=== PATIENT | male | born 1965 | race Caucasian/White ===

== ENCOUNTER 2021-04-17 04:56 | Emergency (ER) | payer BC, SELFPAY ==
[2021-04-17 05:03] VITALS: BP 103/83; PULSE 75; RESP 18; TEMP 36.1; O2SAT 98; BMI 24.3
--- NOTE | 2021-04-17 05:06 | CT_ITS ---
STUDY: CT ABDOMEN AND PELVIS WITHOUT CONTRAST REASON FOR EXAM: Male, 55 years old. Kidney Stone -- Right flank pain RADIATION DOSAGE (If Supplied By Facility): CTDIvol = ( 9.44 ) mGy, DLP = ( 497.50 ) mGycm TECHNIQUE: Transaxial images were obtained from the dome of the diaphragm to the symphysis pubis without oral contrast, and without intravenous contrast. Sagittal and coronal images were reconstructed. Individualized dose optimization techniques were used for this CT. COMPARISON: None. FINDINGS: The visualized lung bases are unremarkable. The visualized portions of the heart are within normal limits. Normal liver. Normal gallbladder and extrahepatic biliary system. Normal spleen. Normal pancreas. Normal bilateral adrenal glands. There is mild to moderate right hydronephrosis. There is a proximal right ureteral stone measuring 6.3 x 4.8 mm proximally 5 to 6 cm distal to the right renal pelvis. There is a 2 to 3 mm stone left kidney. There are punctate stones left kidney. There is no visualized hydronephrosis. There is a small hiatal hernia. The hernandez of the small bowel are mildly thickened. Image #80. There is moderate stool in the colon. There is diverticulosis without visualized diverticulitis. The appendix is visualized and appears normal. Normal abdominal aorta. Normal inferior vena cava. Normal retroperitoneum. Normal urinary bladder. There are prostatic calcifications. Normal abdominal wall. There are diffuse degenerative changes of the visualized lumbar spine. L3-L4, to a greater degree L4-L5 and L5-S1 there is a broad disc bulge is moderate neural foramina narrowing. L5-S1. There is minimal central stenosis. CT/Abdomen/Pelvis without Cont IMPRESSION: 6.3 x 4.8 mm stone proximal right ureter. Punctate stones left kidney no hydronephrosis Diverticulosis no diverticulitis. Nonspecific mild wall thickening of the small bowel which could potentially represent mild enteritis. Electronically Signed: Ibis Palomino MD at 5:55 EDT Tel , Service support ,
[2021-04-17 05:15] LABS: Absolute Neutrophil Count 7.9 X10^3/uL (2.0-7.7); Basophil% 0.9 % (0-1); Eosinophil# 0.27 X10^3/uL; Eosinophils% 2.5 % (0-5); Hematocrit 50.4 % (40-54); Hemoglobin 16.6 g/dL (13.0-16.5); Lymphocyte % 18.2 % (19-41); Mean Corp Hgb Conc 32.9 g/dL (32-36); Mean Corpuscular Hgb 29.2 pg (27.0-32.0); Mean Corpuscular Volume 88.6 fL (80-94); Mean Platelet Vol. 10.8 fl (6.2-12.0); Monocyte# 0.67 X10^3/uL; Monocyte% 6.1 % (0-10); NRBC Flagged by Analyzer 0 % (0-5); Neutrophil # 7.88 X10^3/uL (2.7-7.7); Neutrophil % 71.8 % (47-70); Platelet Count 247 K/mm3 (150-450); RBC Distribution Width CV 13.6 % (11.6-14.6); RBC Distribution Width SD 43.8 fl (35.1-43.9); Red Blood Count 5.69 M/mm3 (4.6-6.2)
[2021-04-17] MEDS: Ondansetron 4 MG/2 ML Vial IV (05:16)
[2021-04-17] MEDS: Ketorolac 15 MG/ML Vial IV (05:16)
[2021-04-17] MEDS: Morphine 4 MG/ML Syringe IV (05:16)
--- NOTE | 2021-04-17 05:18 | EDS_ITS ---
HPI History of Present Illness Chief Complaint: Flank Pain Informant: patient Onset/Context/Timing Onset: Hours Context: Sudden Onset Timing: Continuous and Waxes and wanes Quality: Pain Location: Right flank Current Severity: Severe Maximum Severity: Severe Worsened by: Nothing Relieved by: None Associated Symptoms Associated Symptoms: Nausea and diaphoresis, patient reported brown urine several days ago but n Narrative Narrative: Patient is a 55-year-old male who is a smoker. He denies history of renal or ureterolithiasis. He denies food intolerance. He denies history of trauma. There is no family history to his knowledge of renal ureterolithiasis. He denies dysuria, frequency or urgency. He does report nausea without vomiting or diarrhea. There are no alleviating, exacerbating precipitating factors. Prior similar symptoms: No Recent Illness/Hospitalization: No PFSH [facility] Medical History Hyperlipemia Home Medications benztropine [Cogentin] 1 mg PO DAILY 04/17/21 [History Last Taken Unknown] cholecalciferol (vitamin D3) [Vitamin D3] 50 mcg PO DAILY 04/17/21 [History Last Taken Unknown] flaxseed oil 1,000 mg PO DAILY 04/17/21 [History Last Taken Unknown] multivitamin 1 tab PO DAILY 04/17/21 [History Last Taken Unknown] ondansetron 4 mg PO Q8H PRN PRN #10 tab 04/17/21 [Rx Last Taken Unknown] oxycodone-acetaminophen 1 tab PO Q6H PRN PRN 5 Days #20 tablet 04/17/21 [Rx Last Taken Unknown] pravastatin 80 mg PO DAILY 04/17/21 [History Last Taken Unknown] Allergy/AdvReac Type Severity Reaction Status Date / Time No Known Allergies Allergy Verified 04/17/21 04:58 Social History (Updated 04/17/21 @ 05:[address] Nas Hunt MD) household members: significant other Smoking Status: Never smoker alcohol intake: current alcohol intake frequency: a few times a month substance use type: does not use ROS ROS ED Constitutional Constitutional ED: Reports sweats; Denies chills, fever(s) or subjective Eyes Eyes: Denies blurry vision or change in vision ENT ENT ED: Denies rhinorrhea or sore throat Cardiovascular Cardiovascular: Denies chest pain or palpitations Respiratory/Chest Respiratory/Chest: Denies cough, dyspnea or dyspnea on exertion Gastrointestinal Gastrointestinal: Reports nausea; Denies abdominal pain, diarrhea, melena or vomiting Genitourinary Genitourinary ED: Reports hematuria; Denies dysuria or urinary frequency Musculoskeletal Musculoskeletal: Reports back pain; Denies arthralgias, myalgias or neck pain Integumentary Denies rash Neurologic Neurologic: Denies headache(s) or weakness Allergic/Immunologic Allergic/Immunologic ED: Denies urticaria EXAM Physical Exam Const Vital Signs: 04/17/21 05:03 Temperature 96.9 F L Temperature Source Temporal Pulse Rate 75 Respiratory Rate 18 Blood Pressure 103/83 H Blood Pressure Mean 89 Pulse Ox 98 Oxygen Delivery Method Room Air Positive well nourished and well developed General Appearance ED: well developed and other During physical exam patient complained of increased pain. He became diaphoretic and slightly pale. HEENT HEENT Narrative: Nares patent. Ears normal. Face is symmetric. Lips are normal. Eyes PERRL and EOMs intact bilaterally General Eye ED: Negative for pale conjunctiva Neck no lymphadenopathy, supple and no JVD Resp normal respiratory effort and clear to auscultation bilaterally Cardio regular rate, regular rhythm, S1 normal heart sound, S2 normal heart sound and no murmurs GI normal to inspection, nondistended, normoactive bowel sounds and non-tender Palpation: soft Back/Spine no CVA tenderness Cervical Spine: Negative for cervical spine tenderness Thoracic Spine / Upper Back: Negative for thoracic spinal tenderness or paraspinal muscle tenderness Extremity normal to inspection General Extremety ED: Negative for edema or tenderness General Extremity: Negative for edema Neuro oriented x3, CN's II-XII intact bilaterally and no sensory deficits noted Sensorium / Orientation: alert Motor Exam: strength 5/5 throughout Psych mental status grossly normal Skin no rashes or lesions noted, no wounds and skin turgor normal MDM MDM MDM Narrative Medical decision making narrative: With abrupt onset of flank pain concern patient has obstructing stone. Doubt pyelonephritis. Since patient is 55 this may represent atypical presentation for aortic aneurysm. Work-up included a UA, CBC, CT of the abdomen pelvis without contrast. Patient was medicated with Zofran, ketorolac and morphine IV push. Patient was reassessed and required more pain medicine. When he was reassessed for the second time at 0645 he is no longer in pain. Will discharge to follow- up with Dr. Felton. Lab Data Attestation: I reviewed the patient's lab results. Lab results narrative: CBC is unremarkable. There is no bandemia. Basic metabolic panels marked for creatinine of 1.41. Glucose is 159. Labs: Laboratory Results - last 24 hr 04/17/21 04/17/21 05:10 05:10 WBC 11.0 RBC 5.69 Hgb 16.6 H Hct 50.4 MCV 88.6 MCH 29.2 MCHC 32.9 RDW Std Deviation 43.8 RDW Coeff of Carol 13.6 Plt Count 247 MPV 10.8 Immature Gran % (Auto) 0.500 Neut % (Auto) 71.8 H Lymph % (Auto) 18.2 L [place] % (Auto) 6.1 Eos % (Auto) 2.5 Baso % (Auto) 0.9 Absolute Neuts (auto) 7.9 H Absolute Lymphs (auto) 2.00 Nucleated RBC % 0 Sodium 139 Potassium 4.0 Chloride 108 H Carbon Dioxide 24.0 Anion Gap 7 BUN 17 Creatinine 1.41 H Estim Creat Clear Calc 70.75 Est GFR (MDRD) Af Amer 67 Est GFR (MDRD) Non-Af 55 L BUN/Creatinine Ratio 12.1 Glucose 159 H Calcium 8.7 Radiography Diagnostic Testing: Radiology Impression Abdomen/Pelvis CT 04/17/21 05:06 IMPRESSION: 6.3 x 4.8 mm stone proximal right ureter. Punctate stones left kidney no hydronephrosis Diverticulosis no diverticulitis. Nonspecific mild wall thickening of the small bowel which could potentially represent mild enteritis. Electronically Signed: Ibis Palomino MD at 5:55 EDT Tel , Service support , CT of the abdomen and pelvis without contrast reveals evidence of hydronephrosis and hydroureter due to obstructing ureteral stone that is lateral to the transverse process of L3. There is a nonobstructing stone noted in the left kidney. Awaiting formal interpretation by radiologist, at 0537 Discharge Plan Triage Chief Complaint: Flank Pain ED Provider: Nas Hunt Dx/Rx/DC Orders Clinical Impression: Hydronephrosis with urinary obstruction due to ureteral calculus, Left renal stone, Acute renal insufficiency Instructions: ED Kidney Stone w/ Colic Prescriptions: New oxycodone-acetaminophen [oxycodone-acetaminophen] 1 TABLET tablet 1 tab PO Q6H PRN PRN (Reason: pain, moderate) 5 Days Qty: 20 RF: 0 ondansetron [ondansetron] 4 MG tablet 4 mg PO Q8H PRN PRN (Reason: Nausea) Qty: 10 RF: 0 No Action multivitamin Tablet 1 tab PO DAILY RF: 0 flaxseed oil 1,000 mg Capsule 1,000 mg PO DAILY RF: 0 pravastatin 80 mg Tablet 80 mg PO DAILY RF: 0 benztropine [Cogentin] 1 mg Tablet 1 mg PO DAILY RF: 0 cholecalciferol (vitamin D3) [Vitamin D3] 50 mcg (2,000 unit) Capsule 50 mcg PO DAILY RF: 0 Primary Care Provider: Vijay Navarro Referrals: Vijay Navarro MD [Primary Care Provider] - Willie Felton MD [STAFF PHYSICIAN] - 3-5 Days Activity Restrictions/Additional Instructions: 1. You should not take ibuprofen or Aleve because you have an elevated creatinine so much 2. If you develop severe pain not controlled by the medicine you were prescribed or unable to eat or drink anything or develop a fever return to the emergency department Disposition Disposition: Home, Self Care
[2021-04-17] MEDS: 0.9% Normal Saline 1,000 ML 250 ML IV (05:19)
[2021-04-17 05:28] LABS: Anion Gap 7 (5-15); BUN 17 mg/dL (7-18); BUN/Creat Ratio 12.1 RATIO (10-20); Calcium,Total 8.7 mg/dL (8.5-10.1); Chloride 108 mmol/L (98-107); Creatinine, Serum 1.41 mg/dL (0.70-1.30); EST Glomerular Filtration Rate 55 mL/min (>60); Est Glom Filt Rate - Afr Amer 67 mL/min (>60); Estimated Creatinine Clearance 70.75 ml/min; Glucose 159 mg/dL (74-106); Sodium Level 139 mmol/L (136-145)
[2021-04-17] MEDS: morphine 8 MG/ML Syringe 6 MG IV (05:53)
== END 2021-04-17 07:16 | disposition home or self-care (01) ==
PROVIDERS: Emergency Provider Emergency Medicine; PCP Family Medicine
DX: N13.2 Hydronephrosis with renal and ureteral calculous obstruction (principal); N28.9 Disorder of kidney and ureter, unspecified; E78.5 Hyperlipidemia, unspecified; Z79.899 Other long term (current) drug therapy; F17.200 Nicotine dependence, unspecified, uncomplicated
CPT/HCPCS: 74176; 80048; 85025; 96361; 96374; 96375; 96376; 99285; J7030; A4216; J2405

== ENCOUNTER → 2021-04-18 08:36 | Outpatient (CLI) | payer BC, SELFPAY ==
[2021-04-17 05:03] VITALS: BMI 24.3
--- NOTE | 2021-04-18 08:50 | EKG12_ITS ---
Test Reason : PRE OP Blood Pressure : / mmHG Vent. Rate : 055 BPM Atrial Rate : 055 BPM P-R Int : 162 ms QRS Dur : 102 ms QT Int : 398 ms P-R-T Axes : 038 037 032 degrees QTc Int : 380 ms Sinus bradycardia Otherwise normal ECG Confirmed by LINDSEY YOUNGBLOOD, ESTEPHANIE ([id number]), editorial cartoonist PUMA SIFUENTES ([id number]) on 04/19/2021 10:21:02 AM Referred By: Willie Felton Confirmed By:ESTEPHANIE PORTILLO MD
[2021-04-18 09:23] LABS: Hematocrit 47.1 % (40-54); Hemoglobin 15.3 g/dL (13.0-16.5); Mean Corp Hgb Conc 32.5 g/dL (32-36); Mean Corpuscular Hgb 29.4 pg (27.0-32.0); Mean Corpuscular Volume 90.4 fL (80-94); Platelet Count 265 K/mm3 (150-450); RBC Distribution Width CV 13.8 % (11.6-14.6); RBC Distribution Width SD 45.7 fl (35.1-43.9); Red Blood Count 5.21 M/mm3 (4.6-6.2); White Blood Count 8.7 K/mm3 (4.4-11.0)
[2021-04-18 09:56] LABS: Anion Gap 5 (5-15); BUN 16 mg/dL (7-18); BUN/Creat Ratio 12.9 RATIO (10-20); Calcium,Total 8.6 mg/dL (8.5-10.1); Chloride 108 mmol/L (98-107); Creatinine, Serum 1.24 mg/dL (0.70-1.30); EST Glomerular Filtration Rate 64 mL/min (>60); Est Glom Filt Rate - Afr Amer 78 mL/min (>60); Glucose 88 mg/dL (74-106); Potassium 4.2 mmol/L (3.5-5.1); Sodium Level 141 mmol/L (136-145)
== END ==
LOC: PSN 08:36
PROVIDERS: PCP Family Medicine; Referring Provider Urology; Visit Provider Urology
DX: Z01.812 Encounter for preprocedural laboratory examination (principal); Z03.818 Encounter for observation for suspected exposure to other biological agents ruled out
CPT/HCPCS: 36415; 80048; 85027; 87635; 93005; C9803; U0005; U0003

== ENCOUNTER 2021-04-18 21:18 | Observation (INO) | payer BC, SELFPAY ==
[2021-04-17 05:03] VITALS: BMI 24.3
[2021-04-18 21:19] VITALS: BP 117/67; PULSE 65; RESP 16; TEMP 36.6; O2SAT 98; BMI 25.7
[2021-04-18] MEDS: HYDROmorphone 1 MG/ML Syringe IV (22:01)
[2021-04-18] MEDS: Ondansetron 4 MG/2 ML Vial IV (22:01)
[2021-04-18] MEDS: 0.9% Normal Saline 1,000 ML 1000 ML IV (22:01)
[2021-04-18 22:05] LABS: Absolute Neutrophil Count 12.7 X10^3/uL (2.0-7.7); Basophil# 0.09 X10^3/uL; Basophil% 0.6 % (0-1); Eosinophil# 0.17 X10^3/uL; Eosinophils% 1.1 % (0-5); Hematocrit 46.2 % (40-54); Hemoglobin 15.6 g/dL (13.0-16.5); Lymphocyte % 10.8 % (19-41); Mean Corp Hgb Conc 33.8 g/dL (32-36); Mean Corpuscular Hgb 29.8 pg (27.0-32.0); Mean Corpuscular Volume 88.3 fL (80-94); Monocyte# 0.97 X10^3/uL; Monocyte% 6.2 % (0-10); NRBC Flagged by Analyzer 0 % (0-5); Neutrophil # 12.73 X10^3/uL (2.7-7.7); Platelet Count 255 K/mm3 (150-450); RBC Distribution Width CV 13.7 % (11.6-14.6); RBC Distribution Width SD 44.5 fl (35.1-43.9); Red Blood Count 5.23 M/mm3 (4.6-6.2); White Blood Count 15.7 K/mm3 (4.4-11.0)
[2021-04-18 22:14] LABS: Anion Gap 8 (5-15); BUN 21 mg/dL (7-18); BUN/Creat Ratio 13.5 RATIO (10-20); Calcium,Total 8.8 mg/dL (8.5-10.1); Chloride 107 mmol/L (98-107); Creatinine, Serum 1.56 mg/dL (0.70-1.30); EST Glomerular Filtration Rate 49 mL/min (>60); Est Glom Filt Rate - Afr Amer 60 mL/min (>60); Estimated Creatinine Clearance 63.95 ml/min; Glucose 109 mg/dL (74-106); Potassium 4.2 mmol/L (3.5-5.1); Sodium Level 139 mmol/L (136-145)
--- NOTE | 2021-04-18 22:23 | RAD_ITS ---
EXAM: XR ABDOMEN, 1 VIEW : 1965 CLINICAL INDICATION: flank pain, known stone TECHNIQUE: Frontal supine view of the abdomen/pelvis. This report was created using [employer] report generation technology. COMPARISON: None. FINDINGS: LOWER THORAX: No acute pathology. GASTROINTESTINAL TRACT: Unremarkable. Non-obstructive. No bowel or stomach distention. ORGANS: Unremarkable as visualized. No organomegaly. No abnormal calcifications. BONES/JOINTS: No acute pathology. SOFT TISSUES: No acute pathology. RAD/Abdomen Single View IMPRESSION: Non-obstructive bowel gas pattern. No urinary stones identified by plain film. at 2250 Reported and signed by: Shaun Saldana MD Electronically Signed: Shaun Saldana MD at 22:50 EDT Tel , Service support ,
[2021-04-18 23:59] LABS: Mucous, Urine 0 SEEN /hpf (<or=2+); Squamous Epithelial Cells - UA 0 SEEN /hpf (0-5)
--- NOTE | 2021-04-18 23:59 | EDS_ITS ---
HPI History of Present Illness Chief Complaint: Flank Pain Informant: patient Narrative Narrative: Patient is a 55-year-old male presenting with worsening right flank pain. He has been worsening since 4 PM today. He was previously diagnosed with a kidney stone is actually scheduled to have lithotripsy with Dr. Felton on Saturday. Chart review shows that patient was seen yesterday in the ER. He was found to have 6 mm x 4.8 mm proximal right ureteral stone. Patient was discharged home with Percocet and Zofran for symptom control. He notes that the Percocet only worked for about 20 minutes today. No other complaints at this time. [facility] Medical History Hyperlipemia Home Medications benztropine [Cogentin] 1 mg PO DAILY 04/17/21 [History Last Taken Unknown] cholecalciferol (vitamin D3) [Vitamin D3] 50 mcg PO DAILY 04/17/21 [History Last Taken Unknown] flaxseed oil 1,000 mg PO DAILY 04/17/21 [History Last Taken Unknown] multivitamin 1 tab PO DAILY 04/17/21 [History Last Taken Unknown] ondansetron 4 mg PO Q8H PRN PRN #10 tab 04/17/21 [Rx Last Taken Unknown] oxycodone-acetaminophen 1 tab PO Q6H PRN PRN 5 Days #20 tablet 04/17/21 [Rx Last Taken Unknown] pravastatin 80 mg PO DAILY 04/17/21 [History Last Taken Unknown] Allergy/AdvReac Type Severity Reaction Status Date / Time No Known Allergies Allergy Verified 04/18/21 21:19 Social History household members: significant other Smoking Status: Never smoker alcohol intake: current alcohol intake frequency: a few times a month substance use type: does not use ROS ROS ED Constitutional Constitutional ED: Denies chills or fever(s) Eyes Eyes: Denies change in vision ENT ENT ED: Denies rhinorrhea or sore throat Cardiovascular Cardiovascular: Denies chest pain Respiratory/Chest Respiratory/Chest: Denies cough or dyspnea Gastrointestinal Gastrointestinal: Reports abdominal pain and nausea; Denies vomiting Genitourinary Genitourinary ED: Reports urinary frequency; Denies hematuria Musculoskeletal Musculoskeletal: Reports back pain; Denies arthralgias or myalgias Integumentary Denies rash Neurologic Neurologic: Denies headache(s) or weakness Psychiatric Psychiatric: Denies anxiety or depression EXAM Physical Exam Const Vital Signs: 04/18/21 21:19 Temperature 97.8 F Temperature Source Temporal Pulse Rate 65 Respiratory Rate 16 Blood Pressure 117/67 Blood Pressure Mean 83 Pulse Ox 98 Oxygen Delivery Method Room Air Positive well nourished and well developed General Appearance ED: well developed HEENT Reports moist mucous membranes Eyes PERRL and EOMs intact bilaterally Neck supple Chest Wall inspection of chest normal Resp normal respiratory effort and clear to auscultation bilaterally Cardio regular rate, regular rhythm and no murmurs GI normal to inspection, nondistended, normoactive bowel sounds Back/Spine General Back: CVA tenderness right Extremity normal to inspection General Extremety ED: Negative for edema or tenderness General Extremity: Negative for edema Neuro oriented x3 Sensorium / Orientation: alert Psych mental status grossly normal Skin no rashes or lesions noted MDM MDM MDM Narrative Medical decision making narrative: Patient evaluated for worsening right flank pain. He has known kidney stone. Creatinine is near his baseline at 1.56. It was 1.402 days ago and 1.24 earlier today. He does have a new leukocytosis of 15.7 but this might be reactive. I suspect all of his pain is from his known stone. Discussed with Dr. Felton who admit the patient for planned lithotripsy in the morning. Patient is given Dilaudid in the ER as well as IV fluids and Zofran with improvement of his symptoms. Lab Data Labs: Laboratory Results - last 24 hr 04/18/21 04/18/21 21:30 21:30 WBC 15.7 H RBC 5.23 Hgb 15.6 Hct 46.2 MCV 88.3 MCH 29.8 MCHC 33.8 RDW Std Deviation 44.5 H RDW Coeff of Carol 13.7 Plt Count 255 MPV 11.0 Immature Gran % (Auto) 0.300 Neut % (Auto) 81.0 H Lymph % (Auto) 10.8 L [place] % (Auto) 6.2 Eos % (Auto) 1.1 Baso % (Auto) 0.6 Absolute Neuts (auto) 12.7 H Absolute Lymphs (auto) 1.70 Nucleated RBC % 0 Sodium 139 Potassium 4.2 Chloride 107 Carbon Dioxide 24.0 Anion Gap 8 BUN 21 H Creatinine 1.56 H Estim Creat Clear Calc 63.95 Est GFR (MDRD) Af Amer 60 Est GFR (MDRD) Non-Af 49 L BUN/Creatinine Ratio 13.5 Glucose 109 H Calcium 8.8 Radiography Diagnostic Testing: Radiology Impression KUB X-Ray 04/18/21 22:23 IMPRESSION: Non-obstructive bowel gas pattern. No urinary stones identified by plain film. at 2250 Reported and signed by: Shaun Saldana MD Electronically Signed: Shaun Saldana MD at 22:50 EDT Tel , Service support , Discharge Plan Triage Chief Complaint: Flank Pain ED Provider: Rachelle Livingston Dx/Rx/DC Orders Clinical Impression: Acute right flank pain, Calculus of proximal right ureter Prescriptions: No Action multivitamin Tablet 1 tab PO DAILY RF: 0 flaxseed oil 1,000 mg Capsule 1,000 mg PO DAILY RF: 0 pravastatin 80 mg Tablet 80 mg PO DAILY RF: 0 benztropine [Cogentin] 1 mg Tablet 1 mg PO DAILY RF: 0 cholecalciferol (vitamin D3) [Vitamin D3] 50 mcg (2,000 unit) Capsule 50 mcg PO DAILY RF: 0 oxycodone-acetaminophen [oxycodone-acetaminophen] 1 TABLET tablet 1 tab PO Q6H PRN PRN (Reason: pain, moderate) 5 Days Qty: 20 RF: 0 ondansetron [ondansetron] 4 MG tablet 4 mg PO Q8H PRN PRN (Reason: Nausea) Qty: 10 RF: 0 Primary Care Provider: Vijay Navarro Referrals: Vijay Navarro MD [Primary Care Provider] - Disposition Disposition: [facility]
[2021-04-19] VITALS (13 sets, daily range): BP systolic 96–126; BP diastolic 59–84; PULSE 43–78; RESP 16–18; TEMP 35.4–37.1; O2SAT 95–100; BMI 25.7
[2021-04-19] LABS: Color, Urine Yellow (Yellow); Glucose, Dipstick Normal (Normal); Ketone-Dipstick Negative (Negative); Leukocyte Esterase-Dipstick 25 /ul (Negative); Nitrite-Dipstick Negative (Negative); Occult Blood-Urine 250 /ul (Negative); Protein-Dipstick 15 mg/dl (Negative); Specific Gravity, Urine 1.015 (1.002-1.030); Urine Bilirubin Dipstick Negative (Negative); Urine Clarity Cloudy (Clear); Urine Urobilinogen Normal (Normal)
[2021-04-19 00:11] LABS: Bacteria 3+ /hpf (None Seen); Red Blood Cells-Urine 5-10 SEEN /hpf (0-5); White Blood Cells 0-5 SEEN /hpf (0-5)
[2021-04-19] MEDS: HYDROmorphone 1 MG/ML Syringe IV (00:15)
[2021-04-19] MEDS: 0.9% Normal Saline 1,000 ML 50 ML IV (01:00)
[2021-04-19] MEDS: Ketorolac 15 MG/ML Vial IV ×3 (03:40→16:08)
--- NOTE | 2021-04-19 07:28 | HP.PCM_ITS ---
HPI - General General Date of Admission: 04/19/21 HPI Narrative CAROL PATEL, is a 55 M who presents with a 6 mm stone in the mid ureter on the right side second time to the emergency room with severe renal colic. He was admitted for pain control were plan to proceed with surgery for shockwave lithotripsy of a stone in the mid right ureter possible stent. [facility] Medical History Hyperlipemia Home Medications benztropine [Cogentin] 1 mg PO DAILY 04/17/21 [History Last Taken Unknown] cholecalciferol (vitamin D3) [Vitamin D3] 50 mcg PO DAILY 04/17/21 [History Last Taken Unknown] flaxseed oil 1,000 mg PO DAILY 04/17/21 [History Last Taken Unknown] multivitamin 1 tab PO DAILY 04/17/21 [History Last Taken Unknown] ondansetron 4 mg PO Q8H PRN PRN #10 tab 04/17/21 [Rx Last Taken Unknown] oxycodone-acetaminophen 1 tab PO Q6H PRN PRN 5 Days #20 tablet 04/17/21 [Rx Last Taken Unknown] pravastatin 80 mg PO DAILY 04/17/21 [History Last Taken Unknown] Allergy/AdvReac Type Severity Reaction Status Date / Time No Known Allergies Allergy Verified 04/18/21 21:19 Social History household members: significant other Smoking Status: Never smoker alcohol intake: current alcohol intake frequency: a few times a month substance use type: does not use ROS Constitutional Constitutional: Denies chills, fever(s) or malaise Eyes Eyes: Denies blurry vision or change in vision ENT HEENT: Reports none Cardiovascular Cardiovascular: Denies chest pain or palpitations Respiratory/Chest Respiratory/Chest: Denies cough or shortness of breath with exertion Gastrointestinal Gastrointestinal: Denies abdominal pain, constipation or diarrhea Genitourinary Genitourinary: Reports systems reviewed and no addt'l complaints, except as documented Musculoskeletal Musculoskeletal: Denies back pain, joint stiffness or joint swelling Integumentary Integumentary: Denies dry skin, jaundice, lesions or rash Neurologic Neurologic: Denies confusion, syncope or weakness Psychiatric Psychiatric: Reports none; Denies anxiety or depression Endocrine Endocrinology: Denies excessive sweating, fatigue or flushing Hematologic/Lymphatic Hematologic/Lymphatic: Denies anemia, easy bleeding or easy bruising Vital Signs Vital Signs Vital Signs: 04/18/21 21:19 04/19/21 00:12 04/19/21 00:13 Temperature 97.8 F 98.1 F Temperature Source Temporal Oral Pulse Rate 65 69 62 Respiratory Rate 16 18 18 Blood Pressure 117/67 117/79 117/79 Blood Pressure Mean 83 91 91 Blood Pressure Source Blood Pressure Position Blood Pressure Location Pulse Ox 98 98 98 Oxygen Delivery Method Room Air Room Air Room Air 04/19/21 00:40 04/19/21 06:40 Temperature 97.7 F L 98.2 F Temperature Source Oral Oral Pulse Rate 78 65 Respiratory Rate 16 16 Blood Pressure 116/70 107/84 H Blood Pressure Mean 85 91 Blood Pressure Source Monitor Monitor Blood Pressure Position Semi-Fowlers Semi-Fowlers Blood Pressure Location Left Arm Left Arm Pulse Ox 98 99 Oxygen Delivery Method Room Air Room Air Weight Weight: 93.2 kg Body Mass Index (BMI) 25.7 Physical Exam Const alert and oriented x3 General Appearance: cooperative HEENT normocephalic, head/scalp atraumatic, EAC's normal and TM's normal bilaterally Eyes PERRL and EOMs intact bilaterally Pupil: sluggish Neck no lymphadenopathy, supple and no JVD General: trachea midline Lymph Lymphatic: no lymphadenopathy noted, lymphedema and lymphadenopathy Resp normal respiratory effort, normal air movement and clear to auscultation bilaterally Cardio regular rate, regular rhythm and peripheral pulses 2+ throughout GI soft to palpation, non-tender and non-distended Extremity normal capillary refill and no clubbing, cyanosis or edema General Extremity: no tenderness to palpation of joints or extremities Skin no rashes or lesions noted General Skin Exam: turgor normal Lesions: no lesions Rashes: no rashes Neuro CN's II-XII intact bilaterally Speech: speech normal Motor Exam: strength 5/5 throughout; Negative for general weakness Psych thought process normal, cooperative and affect normal Appearance: appropriate Results Lab / Micro Data Result Diagrams: 04/18/21 21:30 04/18/21 21:30 Labs: Laboratory Results - last 24 hr 04/18/21 04/18/21 04/18/21 21:30 21:30 23:55 WBC 15.7 H RBC 5.23 Hgb 15.6 Hct 46.2 MCV 88.3 MCH 29.8 MCHC 33.8 RDW Std Deviation 44.5 H RDW Coeff of Carol 13.7 Plt Count 255 MPV 11.0 Immature Gran % (Auto) 0.300 Neut % (Auto) 81.0 H Lymph % (Auto) 10.8 L [place] % (Auto) 6.2 Eos % (Auto) 1.1 Baso % (Auto) 0.6 Absolute Neuts (auto) 12.7 H Absolute Lymphs (auto) 1.70 Nucleated RBC % 0 Sodium 139 Potassium 4.2 Chloride 107 Carbon Dioxide 24.0 Anion Gap 8 BUN 21 H Creatinine 1.56 H Estim Creat Clear Calc 63.95 Est GFR (MDRD) Af Amer 60 Est GFR (MDRD) Non-Af 49 L BUN/Creatinine Ratio 13.5 Glucose 109 H Calcium 8.8 Urine Color Yellow Urine Clarity Cloudy Urine pH 8.0 Ur Specific [place] 1.015 Urine Protein 15 H Urine Glucose (UA) Normal Urine Ketones Negative Urine Occult Blood 250 H Urine Nitrite Negative Urine Bilirubin Negative Urine Urobilinogen Normal Ur Leukocyte Esterase 25 H Urine RBC 5-10 SEEN Urine WBC 0-5 SEEN Ur Squamous Epith Cells 0 SEEN Urine Bacteria 3+ Urine Mucus 0 SEEN Radiology Impression KUB X-Ray 04/18/21 22:23 IMPRESSION: Non-obstructive bowel gas pattern. No urinary stones identified by plain film. at 2250 Reported and signed by: Shaun Saldana MD Electronically Signed: Shaun Saldana MD at 22:50 EDT Tel , Service support , Assessment & Plan Assessment/Plan (1) Calculus of proximal right ureter: (2) Acute right flank pain: PLAN: Plan to proceed with shockwave lithotripsy possible stent today.
--- NOTE | 2021-04-19 07:30 | PCM.DC ---
Discharge Instructions Diet Discharge Diet: No restrictions Activity Discharge Activity: Return to Normal Activity and May Not Drive (while taking narcotic pain medications.) Dressing / Incision Call your doctor if you observe: Fever of 101 or Higher Follow Up Care Please Follow Up With: Willie Felton MD When: Call [phone] for an appointment Test Results: Test results from this visit will be discussed in further detail at your follow-up appointment, if applicable. Discharge Plan Admission Admit Date/Time: 04/19/21 00:00 Attending Provider: Willie Felton Primary Care Provider: Vijay Navarro Discharge Orders/Prescriptions Prescriptions: No Action multivitamin Tablet 1 tab PO DAILY RF: 0 flaxseed oil 1,000 mg Capsule 1,000 mg PO DAILY RF: 0 pravastatin 80 mg Tablet 80 mg PO DAILY RF: 0 benztropine [Cogentin] 1 mg Tablet 1 mg PO DAILY RF: 0 cholecalciferol (vitamin D3) [Vitamin D3] 50 mcg (2,000 unit) Capsule 50 mcg PO DAILY RF: 0 oxycodone-acetaminophen [oxycodone-acetaminophen] 1 TABLET tablet 1 tab PO Q6H PRN PRN (Reason: pain, moderate) 5 Days Qty: 20 RF: 0 ondansetron [ondansetron] 4 MG tablet 4 mg PO Q8H PRN PRN (Reason: Nausea) Qty: 10 RF: 0 Referrals / Follow Up: Vijay Navarro MD [Primary Care Provider] -
--- NOTE | 2021-04-19 09:55 | NURSING ---
report called to Veronica CHACON RN
[2021-04-19] MEDS: Cefazolin 2 GM in 0.9% Normal Saline 100 ML IV (12:15)
[2021-04-19] MEDS: Lactated Ringers 1,000 ML 100 ML IV (13:00)
--- NOTE | 2021-04-19 13:23 | PCM.OPRPT ---
Report of Operation Date of Procedure: 04/19/21 Pre-Operative Diagnosis: Right ureteral calculi with obstruction Post-Operative Diagnosis: Same Surgery/Procedure Performed:: Cystoscopy right stent placement and right ESWL Description of Surgical Findings:: Patient presents to the hospital for treatment of a kidney stone with shockwave lithotripsy. In the preoperative area and x-ray was done to confirm the location of the stone. The x-ray was reviewed and the stone location was reviewed. In the preoperative setting I spoke with the patient regarding the treatment of the stone how the treatment would be conducted and the expectations after surgery. The patient understands there is a risk of bleeding and infection. Also discussed the very rare risk of hematoma or damage to the kidney. We also discussed the risk that the shockwave machine will fail to break the stone adequately and that the patient may need other surgical procedures. We also discussed the possibility that the patient may need a stent after the procedure. After reviewing the procedure with the patient, the patient is signed the consent form all the patient's questions were addressed and was taken back to the operating room for treatment of a kidney stone. Patient was taken back to the operating room, patient was identified by the nursing staff, we identified the side of the treatment and the patient side of treatment had been marked by my initials. The patient underwent general anesthetic and was placed supine on the lithotripter table. We then used fluoroscopy to identify the stone on the right side. The urethra and genitals were prepped and draped in usual sterile fashion. Using a 21 [place] rigid cystourethroscope the entire length of the urethra was normal then went into the bladder. Identified the trigone the left and right ureteral orifice. I then cannulated the right orifice and advanced a wire up into the kidney. I then backloaded a 5 [place] open ended catheter over the wire and injected contrast to delineate the anatomy. After the retrograde was performed I then used fluoroscopic images and guidance to advanced a wire up into the kidney and over the 0.038 glidewire I advanced a 6 [place] by 26 cm double pigtail stent. I then pulled the 0.038 Glidewire off and the stent coiled in the kidney bladder good position. The bladder was then drained. We confirmed the position of the stent by fluoroscopy. We then positioned the patient under the lithotripter and we used triangulation technique to identify the location of the stone and then we made sure that the stone was engaged in the F2 focal point of F2 [place]ier lithoprior machine. Once the patient was positioned appropriately and the stone was identified and placed in the F2 focal point of the lithotripter machine we then proceeded with shockwave lithotripsy. In the beginning the shockwave was delivered at a rate of 90 shocks per minute, we monitor the EKG for any ectopy. The power was slowly increased to 5 kV and subsequently at the 7 kV. We then proceeded with the treatment we move the therapy had around during the treatment to make sure the stone stayed in the F2 focal point during the entire treatment and after 3000 shockwaves were delivered to the stone under fluoroscopic guidance the treatment was completed. The patient was given instructions to call the office to make an a follow-up appointment with an xray to evaluate the success of the treatment, pateint understands that its possible the stones may need another procedure.At this point the patient's anesthetic was reversed patient was extubated and taken back to the PACU in stable condition. Surgeon: gregg Type of Anesthesia: General Drains: stent on right side Admit VTE Documentation VTE Present on Admission: No VTE Mechan Device Prophylaxis: SCD's
[2021-04-19] MEDS: 0.9% Saline Lock 10 ML Syringe IV ×2 (14:44→16:08)
[2021-04-19] MEDS: Ondansetron 4 MG/2 ML Vial IV (14:44)
== END 2021-04-19 17:50 | disposition home or self-care (01) ==
LOC: ED 04-19 00:05 → MS3 04-19 04:25
PROVIDERS: Admitting Provider Urology; Emergency Provider Emergency Medicine; PCP Family Medicine; Visit Provider Urology
PROC: (CPT 50590; principal; 2021-04-19 11:20)
DX: N20.1 Calculus of ureter (principal); E78.5 Hyperlipidemia, unspecified; Z79.899 Other long term (current) drug therapy
CPT/HCPCS: 50590; 52332; 74018; 80048; 81001; 85025; 96361; 96374; 96375; 96376; 99218; 99284; J7030; J7120; A4216; C1769; C2617; G0378; J2405